=== PATIENT | female | born 2005 | race Two or more races ===

== ENCOUNTER 2025-02-21 03:30 | Emergency (ER) | payer SELFPAY ==
[2025-02-21 03:44] VITALS: PULSE 82; RESP 18; O2SAT 95; BMI 26.4
[2025-02-21 03:47] VITALS: BP 116/76; PULSE 104; RESP 21; TEMP 36.3; O2SAT 98
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
[2025-02-21 06:21] VITALS: BP 107/62; PULSE 96; RESP 20; TEMP 36.2; O2SAT 98
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
[2025-02-21 07:51] LABS: Collection Type, Urine Clean Catch
[2025-02-21 08:00] VITALS: BP 121/80; PULSE 101; RESP 16; TEMP 37.2; O2SAT 100
[2025-02-21 08:02] LABS: Basophils % (Auto) 0 % (0-2.5); Eosinophils % (Auto) 0 % (0-10); Hematocrit 34.1 % (36.0-46.0); Hemoglobin 11.4 g/dL (12.0-16.0); Immature Granulocytes % (Auto) 0 % (0-0); Immature Granulocytes Auto 0.04 Thou/mm3 (0.00-0.00); Lymphocytes # (Auto) 1.1 Thou/mm3 (1.0-5.0); Lymphocytes % (Auto) 11 % (10-50); Mean Corpuscular HGB Conc 33.4 g/dl (31.0-37.0); Mean Corpuscular Hemoglobin 25.9 pg (25.0-35.0); Mean Corpuscular Volume 77 fL (80-100); Monocytes # (Auto) 0.6 Thou/mm3 (0.0-0.8); Monocytes % (Auto) 6 % (0-12); Neutrophils # (Auto) 8.1 Thou/mm3 (1.8-7.7); Neutrophils % (Auto) 82 % (37-80); Nucleated Red Blood Cell % 0 /100 WBC (0); Platelet Count 439 Thou/mm3 (140-440); RDW Standard Deviation 44.2 fL (36.4-46.3); Red Blood Count 4.41 Miln/mm3 (4.00-5.20); White Blood Count 9.8 Thou/mm3 (4.5-11.0)
[2025-02-21 08:15] LABS: Bacteria,Urine Rare; Bilirubin,Urine Negative (Negative); Blood,Urine 3+ (Negative); Color,Urine Lt-Yellow (Lt Yel-Yel); Culture Indicated,Urine Not Indicated; Glucose, Urine 4+ (Negative); Ketones,Urine 2+ (Negative); Leukocyte Esterase,Urine Negative (Negative); Nitrite,Urine Negative (Negative); PH,Urine 6.5 (5.0-7.0); Protein,Urine Trace (Neg - Trace); RBC,Urine 315 /hpf (0-3); Specific Gravity,Urine 1.037 (1.001-1.035); Squamous Epithelial Cell,Urine 14 /hpf (0-5); Urobilinogen,Urine Negative mg/dL (0.0-1.0); WBC,Urine 1 /hpf (0-5)
[2025-02-21 08:16] LABS: Clarity,Urine Hazy (Clear/Hazy)
[2025-02-21 08:21] LABS: Alanine Aminotransferase 69 U/L (10-49); Albumin, Serum 4.3 gm/dL (3.5-5.0); Albumin/Globulin Ratio 1.4 (1.2-2.2); Alcohol, Blood Medical < 3.0 mg/dL (0-10.0); Alkaline Phosphatase 147 U/L (46-116); Anion Gap 16 (7-16); Aspartate Amino Transferase 192 U/L (0-34); BUN/Creatinine Ratio 11 Ratio (12-20); Bilirubin,Total 0.5 mg/dL (0.3-1.2); Blood Urea Nitrogen 12 mg/dL (9-23); Calcium 9.1 mg/dL (8.3-10.6); Calcium (Corrected) 9.1 mg/dL (8.5-10.1); Carbon Dioxide 24.2 mMol/L (20.0-31.0); Chloride 99 mMol/L (98-107); Creatinine (Component) 1.1 mg/dL (0.6-1.3); Estimated Creatinine Clearance 75.9 mL/min (>60); Glucose 317 mg/dL (74-106); Lipase 23 U/L (12-53); Osmolality,Calculated 289 (275-295); Potassium 4.5 mMol/L (3.4-5.1); Sodium 139 mMol/L (136-145); Total Protein 7.3 gm/dL (5.7-8.2); eGFR > 60 See Note
[2025-02-21 08:25] LABS: HCG Qualitative,Urine Negative
[2025-02-21 08:37] LABS: Amphetamine/Methamp Scrn,U Negative (Negative); Barbiturate Screen,Urine Negative (Negative); Benzodiazepines Screen,Urine Negative (Negative); Benzoylecgonine Screen, Ur Negative (Negative); Fentanyl Screen,Urine Negative (Negative); Opiate Screen,Urine Negative (Negative); THC Screen,Urine Negative (Negative)
[2025-02-21] MEDS: fentaNYL CIT INJ 50 mCg/ML AMP 2ML IVP (09:08)
[2025-02-21] MEDS: ONDANSETRON INJ 2 MG/ML INJ 2 ML 4 MG IVP (09:09)
[2025-02-21] MEDS: DIPHTH,PERTUSS(ACELL),TET VAC 0.5 ML SYR- ADULT IMi (09:09)
[2025-02-21] MEDS: SODIUM CHLORIDE 0.9% 1000 ML 1,000 ML 999 ML IV (09:11)
[2025-02-21 09:45] VITALS: BP 116/68; PULSE 98; RESP 16; TEMP 37; O2SAT 99
[2025-02-21 10:47] LABS: Reflex Lactate? Y
--- NOTE | 2025-02-21 11:02 | PC.NURSE ---
PT AMBULATES INDEPENDELY W/STEADY GAIT AT DISCHARGE. [facility] 15 VERBALIZES UNDERSTANDING OF DISCHARGE INSTRUCTIONS. WAITING ON SISTER TO BRING IN CLOTHES
[2025-02-21 11:06] LABS: Lactic Acid, 3 HR 2.4 mMol/L (0.4-2.0)
[2025-02-21 11:07] VITALS: BP 112/62; PULSE 90; RESP 14; TEMP 36.9; O2SAT 98
== END 2025-02-21 11:35 | disposition home or self-care (01) ==
PROVIDERS: Physician Assistant; Emergency Provider Emergency Medicine
DX: S22.42XA Multiple fractures of ribs, left side, initial encounter for closed fracture (principal); S70.02XA Contusion of left hip, initial encounter; S30.0XXA Contusion of lower back and pelvis, initial encounter; S30.810A Abrasion of lower back and pelvis, initial encounter; S70.212A Abrasion, left hip, initial encounter; S19.9XXA Unspecified injury of neck, initial encounter; S09.90XA Unspecified injury of head, initial encounter; S39.91XA Unspecified injury of abdomen, initial encounter; E10.65 Type 1 diabetes mellitus with hyperglycemia; V89.2XXA Person injured in unspecified motor-vehicle accident, traffic, initial encounter; Z23 Encounter for immunization
CPT/HCPCS: 36415; 70450; 71045; 71260; 72125; 74177; 80053; 80307; 80320; 81001; 81025; 83605; 83690; 85025; 90471; 90715; 96361; 96374; 96375; 99291; A4649; J2405; J3010; J7030; Q9967; G0480